=== PATIENT | female | born 1960 | race Caucasian/White ===

== ENCOUNTER 2019-08-19 14:35 | Outpatient (CLI) | payer OTHER, SELFPAY ==
--- NOTE | 2019-08-19 14:37 | MM_ITS ---
WS: [id number] BILATERAL SCREENING DIGITAL MAMMOGRAM WITH CAD HISTORY: SCREENING COMPARISON: 08/18/2018 and 08/15/2017 Bilateral CC and MLO views submitted. Computer aided detection analyzed. Breast composition: There are scattered areas of fibroglandular density. No suspicious masses, microc alcifications or architectural distortion. MM/[id number] IMPRESSION: BI-RADS: 1-Negative FOLLOW UP: 1 Year Follow-up
== END 2019-08-19 14:36 | disposition home or self-care (01) ==
LOC: RADSHAW 14:35
PROVIDERS: Family Provider Family Medicine; PCP Family Medicine; Visit Provider Family Medicine
DX: Z12.31 Encounter for screening mammogram for malignant neoplasm of breast (principal)
CPT/HCPCS: 77067

== ENCOUNTER 2019-12-14 06:29 | Day surgery (SDC) | payer OTHER, SELFPAY ==
[2019-12-13 13:59] VITALS: BMI 39.6
[2019-12-14 06:47] VITALS: BP 137/70; PULSE 72; RESP 16; TEMP 36.6; O2SAT 96
[2019-12-14] MEDS: sodium chloride 0.9% 1,000 ML 30 ML IV (07:21)
--- NOTE | 2019-12-14 07:43 | ANES.PREANE2 ---
Pre-Anesthetic Assessment Pre-Anesthetic Assessment: Height/Weight: Height 1.6 m Weight 101.605 kg Temp Pulse Resp BP Pulse Ox 97.9 F 72 16 137/70 96 12/14/19 06:47 12/14/19 06:47 12/14/19 06:47 12/14/19 06:47 12/14/19 06:47 Proposed Procedure: Operation Date: 12/14/19 08:00 Proposed Procedures p [facility] Implants(Left) - Chip Petit MD Last intake: Intake Last Liquid Date 12/14/19 Last Liquid Time 05:00 Last Solid Date 12/13/19 Last Solid Time 20:00 Social: Social History: Tobacco (quit 2012) and No alcohol Exam: Pre-Anes Outpt Exam: alert, oriented x 3, clear to auscultation bilaterally and regular rate & rhythm Airway: Submandibular: WNL Cervical ROM: WNL MP: 2 Dentition: Other (teeth ok) History/ROS: No significant history except as noted Pulmonary: Pulmonary: None reported CV/HEM: CV/HEM: HTN : : None reported Hepatic: Hepatic: None reported GI: GI: GERD (occ) Metabolic: Metabolic: None reported Musc/skel: Musc/skel: OA/DJD Neuropsych: Neuropsych: Anxiety and Depression Anesthetic Plan: ASA status: 2 Anesthesia: Anesthesia Evaluation and General Risk of > 500 ml blood loss (7ml/kg in children): No Meds/Allergies Current Medications: Current Medications Generic Name Dose Route Start Last Admin Trade Name Freq PRN Reason Stop Dose Admin Sodium Chloride 1,000 mls @ 30 ml s/hr 12/14/19 06:45 12/14/19 07:21 Sodium Chloride 0.9% IV 12/15/19 06:44 30 mls/hr .Q24H VEL Administration PFSH Anesthesia PFSH: Social History Smoking and tobacco status: light tobacco smoker cigarettes Packs smoked per day: 0.25 Years cigarettes smoked: 4 Number of cigarettes per day: 1-5 Quit status (tobacco): quit date established Smoking risk assessment/counseling performed?: No Data Anesthesia Cardiac Studies: No Data to Display
--- NOTE | 2019-12-14 08:38 | W.PM.OPSUD ---
Surgery/Procedure H&P Update DATE OF PROCEDURE: December 14, 2019 DATE H&P PERFORMED: 11/29/19 PLANNED PROCEDURE: Operation Date: 12/14/19 08:00 Proposed Procedures p [employer] Implants(Left) - Chip Petit MD
[2019-12-14] MEDS: neomycin-poly-bacitracin oint 28 gm 1 APPLIC TOPICAL (09:45)
[2019-12-14 09:58] VITALS: BP 116/63; PULSE 84; RESP 16; TEMP 36.2; O2SAT 98
--- NOTE | 2019-12-14 10:02 | PM.OP ---
Operative Report Date of procedure: December 14, 2019 Pre-op Diagnosis: Severe mixed hearing loss, Left Ear Post-op diagnosis: same Post-op Findings: Normal Left post auricular exam Implants: Left post auricular Bone Anchored Hearing Aid/Implant Specimens removed/disposition: None Pathology: none sent Surgeon: Chip Petit Shop Technician: Moises Neil Anesthesia: General Estimated blood loss (mL): 2 IV fluids (mL): 500 Complications: None Findings: Normal Left Post Auricular Exam Condition: stable Disposition: PACU Brief History: 59 yo wf with a h/o severe mixed hearing loss in left ear with poor standard hearing aid results. Procedure: The patient was notified the preoperative holding area and was taken to the operating room where she was placed on the operating table in the supine position. Anesthesia was obtained with general endotracheal anesthesia and the table was turned 180 degrees. The left postauricular hairbearing skin was shaved and prepped with Betadine. The patient was then prepped and draped in the usual sterile fashion. The surgical indicator was placed on the postauricular skin and the appropriate position was marked out for the implant approximately 52 mm behind the external external auditory canal on the left. The depth of the skin was then measured and the appropriate implant 12 mm was picked out for the patient. The incision was then injected with local anesthesia, 10 minutes were allowed to pass, and a 5 mm punch biopsy tool was used to remove full-thickness skin down to the mastoid cortex. Using the surgical raspatorium, the periosteum was removed from the bone at the implant site. Then using the implant drill at 2000 RPM, while irrigating, the helicopter pilot instructor drill was used to drill a 3 mm deep hole. The bone at the base of the hole was inspected and found to be robust. At this point the guide was taken off the drill bit and the helicopter pilot instructor hole was extended to a 4 mm in depth. The bone was rechecked and found to be robust at its base. The widening drill was then used to widen the hole while irrigating copiously. Once the hole was the appropriate width and depth, the implant was placed into the hole and with the drill set on 15 cm the implant was threaded into the bony hole to its full depth. Once the implant was in the appropriate position, the implant was covered with triple antibiotic ointment followed by sterile dressing. At this point the procedure was terminated and control of the patient was returned to anesthesia where she underwent an uneventful reversal of anesthesia and extubation and was taken to the recovery room in stable condition. There were no operative or anesthetic complications.
[2019-12-14 10:05] VITALS: BP 118/70; PULSE 81; RESP 18; TEMP 36.2; O2SAT 98
[2019-12-14 10:20] VITALS: BP 134/65; PULSE 75; RESP 18; TEMP 36.7; O2SAT 98
[2019-12-14 10:25] VITALS: BP 135/73; PULSE 72; RESP 18; TEMP 36.6; O2SAT 98
== END 2019-12-14 10:40 | disposition home or self-care (01) ==
PROVIDERS: PCP Family Medicine; Visit Provider Specialist
PROC: (CPT 69710; principal; 2019-12-14 08:00)
DX: H90.72 Mixed conductive and sensorineural hearing loss, unilateral, left ear, with unrestricted hearing on the contralateral side (principal); I10 Essential (primary) hypertension; K21.9 Gastro-esophageal reflux disease without esophagitis; M19.90 Unspecified osteoarthritis, unspecified site; Z87.891 Personal history of nicotine dependence
CPT/HCPCS: 69710; 12345; J0690; J1100; J2001; J2405; J2704; J2710; J3010; J3490; J7030

== ENCOUNTER 2021-12-24 14:30 | Outpatient (CLI) | payer OTHER, SELFPAY ==
--- NOTE | 2021-12-24 14:41 | MM_ITS ---
WS: [id number] BILATERAL 3D TOMOSYNTHESIS DIGITAL SCREENING MAMMOGRAPHY WITH CAD CLINICAL INFORMATION: SCREENING HISTORY: Screening mammogram. No current complaints. COMPARISON: August 19, 2019 TECHNIQUE: Bilateral CC and MLO views. FINDINGS: Scattered fibroglandular densities bilaterally. No suspicious focal mass, asymmetry, calcifications, or architectural distortion. No evidence of malignancy. MM/[place] [id number] IMPRESSION: BI-RADS: 1-Negative FOLLOW UP: 1 Year Follow-up Recommend return to annual screening mammography.
--- NOTE | 2021-12-24 14:41 | XR_ITS ---
WS: [id number] SCREENING DEXA SCAN [employer] CLINICAL INFORMATION: POSTMENOPAUSAL COMPARISON: None. FINDINGS: The L1-L4 bone mineral density measures 0.849 g/cm2. This corresponds to a T score score of -2.8 and Z score of -2.1. Left femoral neck bone mineral density measures 0.832 g/cm2. This corresponds to a T score of -1.4 an d Z score of -0.9. Right femoral neck bone mineral density measures 0.814 g/cm2. This corresponds to a T score -1.5of an d Z score of -1.0. Mean femoral neck bone mineral density measures 0.823 g/cm2. This corresponds to a T score of -1.5 an d Z score of -0.9. XR/XR DEXA axial skeleton* [id number] IMPRESSION: Osteoporosis lumbar spine. Osteopenia femoral necks. Patient's FRAX calculated 10 year probability for major osteoporotic fracture i s 17.7 % and osteoporotic hip fracture is 3.0%.
== END 2021-12-24 14:31 | disposition home or self-care (01) ==
PROVIDERS: PCP Family Medicine; Visit Provider Family Medicine
DX: Z12.31 Encounter for screening mammogram for malignant neoplasm of breast (principal); Z13.820 Encounter for screening for osteoporosis; Z78.0 Asymptomatic menopausal state; M81.0 Age-related osteoporosis without current pathological fracture; M85.88 Other specified disorders of bone density and structure, other site
CPT/HCPCS: 77063; 77067; 77080

== ENCOUNTER 2022-01-01 09:59 | Outpatient (CLI) | payer OTHER, SELFPAY ==
--- NOTE | 2022-01-01 | XR_ITS ---
WS: [id number] LUMBAR SPINE FLEXION AND EXTENSION TECHNIQUE: 3 views of the lumbar spine: Lateral neutral, flexion, and extension views. CLINICAL INFORMATION: CHRONIC BACK PAIN COMPARISON: 2018 FINDINGS: Osteopenia. Disc space narrowing worse L5-S1. No acute appearing compression fractures. Mil d facet arthropathy L5-S1. Normal alignment on the neutral view. No instability on flexion-extension. XR/XR lumbar spine f/e only [id number] IMPRESSION: 1. Disc space narrowing worse L5-S1 with vacuum disc phenomenon stable since 2 018. 2. Mild facet arthropathy L5-S1. 3. Normal alignment on the neutral view. No instability on flexion-extension.
== END 2022-01-01 10:00 | disposition home or self-care (01) ==
LOC: RADOUTREAD 01-02 10:02
PROVIDERS: PCP Family Medicine; Visit Provider Family Medicine
DX: M54.9 Dorsalgia, unspecified (principal); M47.817 Spondylosis without myelopathy or radiculopathy, lumbosacral region; M48.07 Spinal stenosis, lumbosacral region
CPT/HCPCS: 72120

== ENCOUNTER 2022-12-31 08:53 | Outpatient (CLI) | payer OTHER, SELFPAY ==
--- NOTE | 2022-12-31 09:12 | MM_ITS ---
WS: [id number] BILATERAL SCREENING DIGITAL TOMOSYNTHESIS MAMMOGRAM WITH CAD HISTORY: SCREENING COMPARISON: 12/24/2021, 08/19/2019 Bilateral CC and MLO views with tomosynthesis and synthetic mammography submitted. Computer aided det ection analyzed. Breast composition: There are scattered areas of fibroglandular density. No suspicious masses, microc alcifications or architectural distortion. MM/[place] [id number] IMPRESSION: BI-RADS: 1-Negative FOLLOW UP: 1 Year Follow-up
== END 2022-12-31 08:54 | disposition home or self-care (01) ==
LOC: RAD 08:56
PROVIDERS: PCP Family Medicine; Visit Provider Family Medicine
DX: Z12.31 Encounter for screening mammogram for malignant neoplasm of breast (principal)
CPT/HCPCS: 77063; 77067

== ENCOUNTER → 2023-11-03 14:55 | Outpatient (BNVA) | payer OTHER, SELFPAY | PROVIDERS: PCP Family Medicine; Visit Provider Podiatrist Foot & Ankle Surgery | DX: M72.2 Plantar fascial fibromatosis; M79.672 Pain in left foot | CPT/HCPCS: 73630 ==

== ENCOUNTER 2024-01-07 07:43 | Outpatient (CLI) | payer OTHER, SELFPAY ==
--- NOTE | 2024-01-07 07:48 | MM_ITS ---
WS: [id number] BILATERAL SCREENING DIGITAL TOMOSYNTHESIS MAMMOGRAM WITH CAD HISTORY: SCREENING COMPARISON: 12/31/2022, 12/24/2021 Bilateral CC and MLO views with tomosynthesis and synthetic mammography submitted. Computer aided det ection analyzed. Breast composition: There are scattered areas of fibroglandular density. No suspicious masses, microc alcifications or architectural distortion. MM/[place] [id number] IMPRESSION: BI-RADS: 1-Negative FOLLOW UP: 1 Year Follow-up
== END 2024-01-07 07:44 | disposition home or self-care (01) ==
LOC: RAD 07:44
PROVIDERS: PCP Family Medicine; Visit Provider Family Medicine
DX: Z12.31 Encounter for screening mammogram for malignant neoplasm of breast (principal); R92.323 Mammographic fibroglandular density, bilateral breasts
CPT/HCPCS: 77063; 77067

== ENCOUNTER 2024-03-30 13:03 | Outpatient (CLI) | payer OTHER, SELFPAY ==
--- NOTE | 2024-03-30 13:10 | XR_ITS ---
WS: [id number] DEXA (DUAL ENERGY X-RAY ABSORPTIOMETRY) Bone mineral density was performed using a Giggem machine. HISTORY: POSTMENOPAUSAL/OSTEOPOROSIS COMPARISON: 12/24/2021 Lumbar spine BMD (L1-L4): 0.916 g/cm2 T score: -2.2 Z score: -1.4 Total hip BMD: Left: 0.853 g/cm2. T score: -1.2 Z score: -0.6 Right: 0.856 g/cm2. T score: -1.2 Z score: -0.6 10 year probability of a major osteoporotic fracture is 9.4%. Compared to the prior study from 12/24/2021. Lumbar spine bone mineral density has increased by 7.9%. Bilateral hips bone mineral density has increased by 3.9%. XR/XR DEXA axial skeleton* [id number] IMPRESSION: OSTEOPENIA based upon the WHO classification for females. Significant increase in bone mineral density within the lumbar spine and hips s markel the prior study.
--- NOTE | 2024-03-30 13:10 | USCV_ITS ---
Elizabeth Angel Age: 64 Gender: F : 1960 Exam Date: 03/30/2024 13:22 Ordering Phys: Eugene Garcia MD Technologist: CT Exam Location: [facility] – [place]_ Indication: murmur BP: 133 / 77 HR: 57 Rhythm: Sinus Technical Quality: Adequate MEASUREMENTS (Male / Female) Normal Values 2D ECHO LVOT Diameter 2.0 cm LV Ejection Fraction MOD 4C 60.2 % LV Ejection Fraction MOD 2C 63.5 % LV Ejection Fraction 2C AL 64.1 % LA Diameter 4.5 cm RA Systolic Volume 4C AL 37.5 ml RA Systolic Volume 4C MOD 36.9 ml LA Sys Volume AL 50.8 cm cubed LA Sys Volume Index AL 29.4 cm cubed/m squared Aorta at Sinotubular Diameter 2.4 cm M-MODE LA Ao Ratio MM 2.0 AV Cusp Separation MM 1.7 cm DOPPLER AV Peak Velocity 194.0 cm/s LVOT Peak Velocity 164.0 cm/s AV Area Cont Eq vti 2.9 cm squared AV Area Cont Eq pk 2.7 cm squared MV Peak Velocity 112.0 cm/s MV Area PHT 4.3 cm squared Mitral E to A Ratio 1.2 TV Peak Velocity 262.0 cm/s TR Peak Velocity 266.0 cm/s TR Peak Gradient 28.3 mmHg TV Peak E Velocity 71.0 cm/s Right Atrial Pressure 3.0 mmHg Pulmonary Artery Systolic Pressu 31.3 mmHg PV Peak Velocity 145.0 cm/s FINDINGS Left Ventricle Normal left ventricular size and systolic function, EF 63%.mild left ventricular hypertrophy. No regional wall motion abnormalities. Right Ventricle The right ventricle is normal in size and function. Right Atrium The right atrium is normal in size. Left Atrium The left atrium is normal in size. Mitral Valve Trace mitral valve regurgitation. Aortic Valve No gross abnormalities noted Tricuspid Valve Trace tricuspid valve regurgitation. Pulmonic Valve No gross abnormalities noted Pericardium Normal pericardium without effusion. Aorta Normal ascending aorta dimension. IVC The inferior vena cava appears normal. CONCLUSIONS Normal left ventricular size and systolic function, EF 63%.mild left ventricular hypertrophy. No regional wall motion abnormalities. Trace mitral valve regurgitation. Trace tricuspid valve regurgitation. There is no pericardial effusion. There are no intracardiac masses. Estimated pulmonary artery peak systolic pressure 31 mmHg No similar previous studies are available for comparison Dr Shamar Freed MD FACC (Electronically Signed) Final Date: 06 April 2024 09:05 S
== END 2024-03-30 13:04 | disposition home or self-care (01) ==
LOC: RAD 13:04
PROVIDERS: PCP Family Medicine; Visit Provider Family Medicine
DX: Z13.820 Encounter for screening for osteoporosis (principal); M81.0 Age-related osteoporosis without current pathological fracture; M85.80 Other specified disorders of bone density and structure, unspecified site; R01.1 Cardiac murmur, unspecified; I34.0 Nonrheumatic mitral (valve) insufficiency; I36.1 Nonrheumatic tricuspid (valve) insufficiency
CPT/HCPCS: 77080; 93306

== ENCOUNTER 2025-02-08 09:15 | Outpatient (CLI) | payer OTHER, MEDICARE, SELFPAY ==
--- NOTE | 2025-02-08 09:21 | MM_ITS ---
WS: [id number] BILATERAL 3D TOMOSYNTHESIS DIGITAL SCREENING MAMMOGRAPHY WITH CAD CLINICAL INFORMATION: SCREENING HISTORY: Screening mammogram. No current complaints. COMPARISON: 2023 TECHNIQUE: Bilateral CC and MLO views. FINDINGS: Scattered fibroglandular densities bilaterally. No suspicious focal mass, asymmetry, calcifications, or architectural distortion. No evidence of malignancy. Tiny punctate lucent centered calcification LEFT breast. MM/MM scr tomosynthesis [id number] IMPRESSION: DENSITY: There are scattered areas of fibroglandular density. BI-RADS: 2 - Benign. FOLLOW UP: 1 Year Follow-up Recommend return to annual screening mammography.
== END 2025-02-08 09:16 | disposition home or self-care (01) ==
PROVIDERS: PCP Family Medicine; Visit Provider Family Medicine
DX: Z12.31 Encounter for screening mammogram for malignant neoplasm of breast (principal); R92.323 Mammographic fibroglandular density, bilateral breasts; R92.1 Mammographic calcification found on diagnostic imaging of breast
CPT/HCPCS: 77063; 77067

== ENCOUNTER → 2025-03-21 07:20 | Outpatient (BNVA) | payer MEDICARE, OTHER, SELFPAY | PROVIDERS: PCP Family Medicine; Visit Provider Podiatrist Foot & Ankle Surgery | DX: L84 Corns and callosities (principal); M20.11 Hallux valgus (acquired), right foot; M20.12 Hallux valgus (acquired), left foot | CPT/HCPCS: 99213 ==

== ENCOUNTER → 2025-03-31 10:40 | Outpatient (BNVA) | payer MEDICARE, OTHER, SELFPAY | PROVIDERS: PCP Family Medicine; Visit Provider Nurse Practitioner Family | DX: L57.8 Other skin changes due to chronic exposure to nonionizing radiation (principal); L81.4 Other melanin hyperpigmentation; D22.5 Melanocytic nevi of trunk; D48.5 Neoplasm of uncertain behavior of skin | CPT/HCPCS: 11102; 99203 ==

== ENCOUNTER → 2025-04-06 09:54 | Outpatient (BNVA) | payer MEDICARE, OTHER, SELFPAY | PROVIDERS: PCP Family Medicine; Visit Provider Podiatrist Foot & Ankle Surgery | DX: L84 Corns and callosities (principal); M20.11 Hallux valgus (acquired), right foot; M20.12 Hallux valgus (acquired), left foot | CPT/HCPCS: 99213 ==

== ENCOUNTER → 2025-07-18 08:56 | Outpatient (BNVA) | payer MEDICARE, OTHER, SELFPAY | PROVIDERS: PCP Family Medicine; Visit Provider Nurse Practitioner Family | DX: L57.8 Other skin changes due to chronic exposure to nonionizing radiation (principal); L81.4 Other melanin hyperpigmentation; D22.5 Melanocytic nevi of trunk; L57.0 Actinic keratosis | CPT/HCPCS: 17000; 99213 ==

== ENCOUNTER 2025-07-25 13:43 | Oncology outpatient (recurring) (ONCR) | payer MEDICARE, OTHER, SELFPAY ==
[2025-07-25] MEDS: denosumab-bbdz 60 MG Syringe SUBCUT (14:50)
== END 2025-08-03 23:59 | disposition home or self-care (01) ==
PROVIDERS: PCP Family Medicine; Visit Provider Family Medicine
DX: M81.0 Age-related osteoporosis without current pathological fracture (principal); Z79.899 Other long term (current) drug therapy
CPT/HCPCS: 96372; Q5136